=== PATIENT | female | born 1985 | race Caucasian/White ===

== ENCOUNTER 2019-09-24 15:50 | Emergency (ER) | payer OTHER ==
[~2019-09-24] VITALS: Ht 152.4 cm; Wt 64.4 kg
--- NOTE | 2019-09-24 16:07 | NUR ---
CALLED [facility] FOR [facility]
--- NOTE | 2019-09-24 16:30 | NUR ---
PATIENT TAKEN BY WHEELCHAIR TO [facility].
--- NOTE | 2019-09-24 16:41 | Emergency Department Note ---
History of Present Illnes History of Present Illness Chief Complaint: General Medicine Complaints History of Present Illness This is a 34 year old female arrived to the ED with complaint of left calf pain, patient day tenderness into the ED by her OB to rule out a DVT. Patient denies any shortness of breath, no history of DVTs in the past. Patient had uncomplicated vaginal delivery. Historian: Patient Arrival Mode: Car Onset (how long ago): day(s) Radiation: Reports non-radiation Severity: mild Onset quality: unable to specify Duration (how long): day(s) Progression: unable to specify Chronicity: new Context: Denies recent illness Relieving factors: none Exacerbating factors: none Associated symptoms: Reports denies other symptoms Past Medical/Family History Physician Review I have reviewed the patient's past medical and family history. Any updates have been documented here. Past Medical History Recent Fever: No Clinical Suspicion of Infectio: No New/Unexplained Change in Ment: No Past Medical History: None Past Surgical History: None Social History Smoking Cessation: Never Smoker Counseling Performed: No Alcohol Use: None Any Illegal Drug Use: No Physically hurt or threatened: No Other Any Pre-Existing Lines (PICC,: No Physical Exam Related Data Allergies: Coded Allergies: No Known Allergies (Unverified , 09/24/19) Triage Vital Signs Vital Signs Date Time Temp Pulse Resp B/P (MAP) Pulse Ox O2 Delivery O2 Flow Rate FiO2 09/24/19 16:04 100.1 74 18 146/90 100 Room Air Vital signs reviewed: Yes Physical Exam CONSTITUTIONAL Constitutional: Present well-developed, Present well-nourished HENT HENT: Present normocephalic, Present atraumatic, Present oropharynx clear/moist, Present nose normal HENT L/R: Present left ext ear normal, Present right ext ear normal EYES Eyes: Reports PERRL, Reports conjunctivae normal NECK Neck: Present ROM normal PULMONARY Pulmonary: Present effort normal, Present breath sounds normal CARDIOVASCULAR Cardiovascular: Present regular rhythm, Present heart sounds normal, Present capillary refill normal, Present normal rate GASTROINTESTINAL Abdominal: Present soft, Present nontender, Present bowel sounds normal GENITOURINARY Genitourinary: Present exam deferred SKIN Skin: Present warm, Present dry MUSCULOSKELETAL Mild tenderness of her left calf, no swelling, no crepitus, soft compartments NEUROLOGICAL Neurological: Present alert, Present oriented x 3, Present no gross motor or sensory deficits PSYCHOLOGICAL Psychological: Present mood/affect normal, Present judgement normal Results Imaging Imaging results reviewed: Yes Assessment & Plan Medical Decision Making MDM 34-year-old female arrives to the ED with complaints of left calf pain, ultrasound ruled out a DVT. Patient stable for discharge home. Assessment & Plan Final Impression: (1) Calf pain Depart Disposition: HOME, SELF-CARE Last Vital Signs Date Time Temp Pulse Resp B/P (MAP) Pulse Ox O2 Delivery O2 Flow Rate FiO2 09/24/19 16:13 99.2 09/24/19 16:04 74 18 100 Room Air NENO PETERSON, Sep 24, 2019 16:40
--- NOTE | 2019-09-24 16:51 | NUR ---
PATIENT RETURNED FROM [facility]. ALERT AND ORIENTED IN NAD
== END 2019-09-24 17:04 | disposition home or self-care (01) ==
LOC: ER 16:10
DX: M79.662 Pain in left lower leg (principal); R50.9 Fever, unspecified; R60.9 Edema, unspecified
CPT/HCPCS: 93971; 99283